=== PATIENT | male | born 1960 | race Caucasian/White ===

== ENCOUNTER 2018-12-25 12:26 | Inpatient (IN) | payer BC ==
[2018-12-25] MEDS ORDERED: fentaNYL* 50 MCG/ML 2 ML VIAL (100 MCG VIAL) IV SLOW PU ONE (13:43)
[2018-12-25] MEDS ORDERED: HYDROmorphone INJ1* 1 MG/ML SYRINGE IV ONE (14:45)
[2018-12-25] MEDS ORDERED: Ondansetron INJ* 2 MG/ML VIAL IV ONE (14:47)
--- NOTE | 2018-12-25 15:22 | ED ---
Adult Trauma - HPI Summary HPI Summary: patient is a 58-year-old male who presents emergency department for left shoulder and right knee injury that occurred just prior to arrival. Patient and his own a drywall company. 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 Patient denies striking his head or loss of consciousness. Patient denies headache, neck pain, chest pain, shortness of breath, abdominal pain. Patient denies numbness, tingling or weakness. Symptoms are moderate in severity. Movement makes symptoms worse. Nothing makes symptoms better. - History of Current Complaint Chief Complaint: EDTraumaMultiple Stated Complaint: FALL/RIGHT SHOULDER LEFT KNEE PER PT Time Seen by Provider: 12/25/18 12:55 Hx Obtained From: Patient Pain Intensity: 10 - Allergy/Home Medications Allergies/Adverse Reactions: Allergies Allergy/AdvReac Type Severity Reaction Status Date / Time morphine Allergy Rash Verified 12/25/18 12:31 Home Medications: Home Medications FLUoxetine CAP* [Prozac CAP*] 10 mg PO DAILY 12/25/18 [History Confirmed ] Pilocarpine HCl 5 mg PO DAILY 12/25/18 [History Confirmed 12/25/18] Tamsulosin CAP* [Flomax CAP*] 0.4 mg PO DAILY WITH MEAL 12/25/18 [History Confirmed 12/25/18] PMH/Surg Hx/FS Hx/Imm Hx Previously Healthy: Yes Infectious Disease History: No Infectious Disease History: Denies: Traveled Outside the [place] in Last 30 Days - Family History Known Family History: Positive: Non-Contributory - Social History Occupation: Employed Full-time Lives: With Family Alcohol Use: Rare Substance Use Type: Reports: Marijuana Smoking Status (MU): Former Smoker Review of Systems Cardiovascular: Negative Negative: Chest Pain Respiratory: Negative Negative: Shortness Of Breath Gastrointestinal: Negative Negative: Abdominal Pain Positive: Other - Left shoulder and right knee pain Negative: Headache, Weakness, Paresthesia, Numbness, Syncope All Other Systems Reviewed And Are Negative: Yes Physical Exam Triage Information Reviewed: Yes Vital Signs On Initial Exam: Initial Vitals Temp Pulse Resp BP Pulse Ox 97.9 F 78 20 141/91 94 12/25/18 12:27 12/25/18 12:27 12/25/18 12:27 12/25/18 12:27 12/25/18 12:27 Vital Signs Reviewed: Yes Appearance: Positive: Pain Distress - Pt. lying in bed, appears in pain but nontoxic. present. Skin: Positive: Warm, Dry Head/Face: Positive: Normal Head/Face Inspection Eyes: Positive: Normal, EOMI Neck: Positive: Supple, Nontender - No midline tenderness Respiratory/Lung Sounds: Positive: Clear to Auscultation, Breath Sounds Present Cardiovascular: Positive: Normal, RRR Abdomen Description: Positive: Nontender, Soft. Negative: CVA Tenderness (R), CVA Tenderness (L) Musculoskeletal: Positive: Other - No midline vertebral tenderness. Deformity noted to left shoulder. Good radial pulse. No breaks in skin. Pain and deformity to right knee. No breaks in the skin. Good pedal pulse. No pelvic pain. No chest wall pain. Neurological: Positive: Normal, Alert, Oriented to Person Place, Time, CN Intact II-III Psychiatric: Positive: Affect/Mood Appropriate - Glidden Coma Scale Best Eye Response: 4 - Spontaneous Best Motor Response: 6 - Obeys Commands Best Verbal Response: 5 - Oriented Coma Scale Total: 15 Diagnostics - Vital Signs Vital Signs Temp Pulse Resp BP Pulse Ox 12/25/18 14:56 20 12/25/18 14:49 99 F 68 22 151/88 97 12/25/18 13:56 20 12/25/18 12:27 97.9 F 78 20 141/91 94 - Laboratory Lab Statement: Any lab studies that have been ordered have been reviewed, and results considered in the medical decision making process. Adult Trauma Course/Dx - Course Course Of Treatment: Patient presenting with right knee and left shoulder injury after falling roughly 3 feet. He has no signs of head trauma, chest or abdominal trauma. Vital signs are stable. Patient was cut from his closed and skin was fully evaluated. Patient was given IV fentanyl initially. X-ray of left shoulder shows before meals separation without fracture. Comminuted tibial plateau fracture seemed to right knee. Chest and pelvic x-rays negative for acute findings x-ray readings per radiology. I spoke with on-call orthopedics, Dr. Osborn, who would like a CT scan of right knee to further evaluate fracture. Patient was placed in a knee immobilizer and left shoulder sling. Patient was initially given a dose of Dilaudid which improved pain. CT knee per radiology: IMPRESSION: Comminuted fracture with depression of the major fracture fragment in the. lateral tibial plateau with depression of the major fracture fragment approximately 8 mm. The comminuted fracture line extends inferiorly to the lateral metaphysis of the tibia,. anteriorly to the tibial tuberosity and extends medially to the posterior medial tibial. plateau as well as fracture line extending just medial to the tibial spine. Hemarthrosis. is noted. Pt. was examined by Dr. Osborn in ED and he will admit him to his service and plans for ORIF on . Pt. has remained stable in the ED. - Diagnoses Differential Diagnosis/HQI/PQRI: Positive: Contusion(s), Fracture, Dislocation, Sprain, Strain Provider Diagnoses: Acromioclavicular joint separation, Tibial plateau fracture Discharge - Sign-Out/Discharge Documenting (check all that apply): Patient Departure Patient Received Moderate/Deep Sedation with Procedure: No - Discharge Plan Condition: Stable Disposition: ADMITTED TO [facility] Referrals: Fran SIDDIQI,Kallie [Primary Care Provider] - - Billing Disposition and Condition Condition: STABLE Disposition: Admitted to [facility]
[2018-12-25] MEDS ORDERED: Acetaminophen TAB* 325 MG PO PRN (17:03)
[2018-12-25] MEDS ORDERED: diPHENhydraMINE IV* 50 MG/ML 1 ml VIAL (BENADRYL) IV PRN (17:03)
[2018-12-25] MEDS ORDERED: Ondansetron INJ* 2 MG/ML VIAL IV PRN (17:03)
[2018-12-25] MEDS ORDERED: oxyCODONE/Acetamin 5/325 MG* TAB PO PRN ×2 (17:03)
--- NOTE | 2018-12-25 17:34 | HP ---
H&P (Free Text) History and Physical: Orthopedic Surgery Consultation H&P Date: 12/25/2018 Requesting Service: ER Chief Complaint: Right knee and left shoulder pain. History: 58M who works in [employer] who was on stilts working when the stilt broke and he fell about 4 feet injuring his right knee and left shoulder. He denies pain anywhere else. Denies head strike or LOC. The worst pain is located at the right knee and is constant, moderate, sharp. Pain worse with knee ROM and lessened when rested. There is associated swelling and ecchymoses. Review of Systems: Negative for fever, recent visual changes, difficulty swallowing, chest pain, abdominal pain, hematuria, easy bruising, diffuse weakness or lack of coordination, and diffuse rash. Positive for recent sinus infection. PMH: BPH, anxiety PSH: Left ankle and right foot fractures fixed by Dr Molina. C-spine fracture surgery. Medications: Flomax and Prozac Allergies: Morphine extended release causes rash SH: Works in [employer]. No tobacco use. Rare alcohol use. +marijuana use. FH: Non-contributory Physical Examination: Constitutional: Temp Pulse Resp BP Pulse Ox 99 F 69 16 140/76 95 12/25/18 17:17 12/25/18 17:17 12/25/18 17:17 12/25/18 17:17 12/25/18 17:17 General appearance is healthy and non-septic in no acute distress. Cardiovascular: Pulse examination demonstrates positive pedal pulses with brisk capillary refill. There are no varicosities. Heart with a regular rate and rhythm. Lungs sounds clear to auscultation bilaterally. Abdomen: Soft and nontender Lymphatic: No lymphadenopathy appreciated. Skin: Bilateral upper and lower extremity examination demonstrates no ulcerative lesions. Psychiatric / Neurological: Appropriate affect. Alert and oriented to person, place and time. There is no significant abnormality in coordination appreciated. Normoreflexive deep tendon reflex of the affected extremity. Musculoskeletal: Right upper extremity and left lower extremity show full range of motion with no evidence of instability and no tenderness with palpation and 5/5 strength. There is no gross deformity. The skin is intact to the left upper extremity. He is tender to palpation at the acromioclavicular joint. Painless glenohumeral range of motion. Sensation is intact to light touch throughout the left upper extremity. Positive radial pulse in the hand is warm and well-perfused. Good motor function in the hand. The skin is intact to the right lower extremity. There is swelling at the knee with some mild bruising. He is tender to palpation at the medial and lateral tibial plateau. He has strong palpable dorsalis pedis and posterior tibial pulses distally. Sensation is intact to light touch. Painless ankle and toe range of motion and no pain with passive stretch. Imaging: X-rays and CT scan of the right knee were obtained, and independently interpreted and show a displaced bicondylar tibial plateau fracture. X-rays of left shoulder show an acromioclavicular joint separation. Impression and Plan: Closed right displaced bicondylar tibial plateau fracture. Left shoulder acromioclavicular joint separation. For the tibial plateau fracture, we discussed the diagnosis and treatment options. My recommendation is open reduction and internal fixation. We discussed the risks/benefits and pros/cons of both nonoperative and operative treatment options at length. He has elected to move forward with ORIF. We'll have him admitted to the hospital. He will remain in a knee immobilizer, nonweightbearing to the right lower extremity. Right lower extremity elevation. Subcutaneous heparin for DVT prophylaxis and a compression SCD on the left leg. We'll obtain preoperative labs in the morning. For the left shoulder acromioclavicular joint separation, he will continue to use a sling. We'll plan on treating this nonoperatively. Catrachito Soria MD
[2018-12-25] MEDS: oxyCODONE TAB* 5 MG TAB PO PRN ×2 (18:13→20:09)
[2018-12-25] MEDS: Lactated Ringers 1000 ML Bag* 1,000 ML IV SCH (20:01)
[2018-12-25] MEDS ORDERED: oxyCODONE TAB* 5 MG TAB PO PRN (20:39)
[2018-12-25] MEDS ORDERED: oxyCODONE TAB* 5 MG TAB PO ONE (20:40)
[2018-12-25] MEDS ORDERED: SULFAMETHOXAZOLE PO SCH (21:00)
[2018-12-25] MEDS ORDERED: TRIMETHOPRIM PO SCH (21:00)
[2018-12-25] MEDS ORDERED: HYDROmorphone INJ1* 1 MG/ML SYRINGE ONE (21:29)
[2018-12-25] MEDS ORDERED: HYDROcodone/ACETAMIN 5-325 MG* 1 TAB ONE (21:29)
[2018-12-25] MEDS: Heparin VIAL(*) 5000 UNITS/ML VIAL (FIVE THOUSAND) SUBCUT SCH (21:53)
[2018-12-25] MEDS: TRIMETHOPRIM PO SCH ×2 (22:20)
[2018-12-25] MEDS: SULFAMETHOXAZOLE PO SCH ×2 (22:20)
[2018-12-25] MEDS: PILOCARPINE 5 MG PO SCH (22:45)
[2018-12-26] MEDS: HYDROmorphone INJ1* 1 MG/ML SYRINGE IV PRN ×4 (00:50→19:56)
[2018-12-26] MEDS: Lactated Ringers 1000 ML Bag* 1,000 ML IV SCH ×2 (05:58→16:14)
[2018-12-26] MEDS: HYDROcodone/ACETAMIN 5-325 MG* 1 TAB PO PRN ×5 (06:08→23:16)
[2018-12-26] MEDS: Heparin VIAL(*) 5000 UNITS/ML VIAL (FIVE THOUSAND) SUBCUT SCH ×3 (06:13→23:14)
[2018-12-26 06:37] LABS: ABS Basophils 0 10^3/ul (0-0.2); ABS Eosinophils 0.3 10^3/ul (0-0.6); ABS Lymphocytes 2.3 10^3/ul (1.0-4.8); ABS Monocytes 0.8 10^3/ul (0-0.8); ABS Neutrophils 5.7 10^3/ul (1.5-7.7); ABS Nucleated RBC 0 10^3/ul; Eosinophil % 3.7 %; Hematocrit 41 % (36-46); Hemoglobin 13.9 g/dL (14.0-18.0); Lymphocyte % 24.8 %; Mean Corpuscular HGB Conc 34 g/dL (31-36); Mean Corpuscular Hemoglobin 31 pg (27-31); Mean Corpuscular Volume 92 fL (80-94); Mean Platelet Volume 7.5 fL (7.4-10.4); Nucleated Red Blood Cells % 0; Platelet Count 185 10^3/uL (150-450); Red Blood Count 4.48 10^6 /uL (4.18-5.48); Red Cell Distribution Width 13 % (10.5-15); White Blood Count 9.3 10^3/uL (3.5-10.8)
[2018-12-26 06:48] LABS: INR 0.98 (0.77-1.02)
[2018-12-26 06:56] LABS: Albumin 4.1 g/dL (3.2-5.2); Calcium 8.6 mg/dL (8.6-10.3); Potassium 4.2 mmol/L (3.5-5.0); Total Bilirubin 0.6 mg/dL (0.2-1.0)
[2018-12-26 07:02] LABS: Albumin/Globulin Ratio 1.6 (1-3); BUN/Creatinine Ratio 20.7 (8-20); EGFR African American 109.4 (>60); EGFR Non-African American 90.4 (>60); Globulin 2.5 g/dL (2-4); Total Protein 6.6 g/dL (6.4-8.9)
[2018-12-26] MEDS ORDERED: Tamsulosin CAP* 0.4 MG PO SCH (08:30)
[2018-12-26] MEDS: TRIMETHOPRIM PO SCH ×2 (08:48→19:57)
[2018-12-26] MEDS: SULFAMETHOXAZOLE PO SCH ×2 (08:48→19:57)
[2018-12-26] MEDS: FLUoxetine CAP* 10 MG PO SCH (08:48)
[2018-12-26] MEDS: PILOCARPINE 5 MG PO SCH ×3 (08:48→19:57)
--- NOTE | 2018-12-26 11:11 | PN ---
Progress Note - Progress Note Date of Service: 12/26/18 SOAP: Subjective: []Pt seen at bedside. He reports RLE pain. Denies CP, SOB, dizziness or nausea. LUE AC separation not painful at this time. Objective: []CGeneral: Well appearing, NAD RLE: Immobilizer in place. Flexion and extension of ankle and MTPs intact. Calf supple and nontender. DP2+, sensation intact to light touch distally LLE calf supple and nontender LUE: Skin envelope intact. No obvious buzz deformity. Radial pulse 2+ Assessment: []Closed right displaced bicondylar tibial plateau fracture. Left shoulder acromioclavicular joint separation. Plan: [] UE: WBA, sling for RUE RLE:NWB, Immobilizer NPO and hold heparin at midnight for OR tomorrow for ORIF R tibial plateau fracture with Dr Soria. Patient aware and agreeable to procedure. Vital Signs Temp 97.2 F 12/26/18 07:15 Pulse 83 12/26/18 07:15 Resp 18 12/26/18 10:40 BP 155/78 12/26/18 07:15 Pulse Ox 98 12/26/18 07:15 Intake & Output 12/25/18 12/26/18 12/26/18 18:59 06:59 18:59 Intake Total 2630 320 Output Total 410 200 Balance 2220 120 Weight 275 lb 275 lb Intake: IV Fluids 980 LR 980 Oral 1650 320 Output: Urine 410 200 Other: Estimated Void Medium # Voids 3 Laboratory Last Values WBC 9.3 10^3/uL (3.5-10.8) 12/26/18 06:14 RBC 4.48 10^6 /uL (4.18-5.48) 12/26/18 06:14 Hgb 13.9 g/dL (14.0-18.0) L 12/26/18 06:14 Hct 41 % (36-46) 12/26/18 06:14 MCV 92 fL (80-94) 12/26/18 06:14 MCH 31 pg (27-31) 12/26/18 06:14 MCHC 34 g/dL (31-36) 12/26/18 06:14 RDW 13 % (10.5-15) 12/26/18 06:14 Plt Count 185 10^3/uL (150-450) 12/26/18 06:14 MPV 7.5 fL (7.4-10.4) 12/26/18 06:14 Neut % (Auto) 62.0 % 12/26/18 06:14 Lymph % (Auto) 24.8 % 12/26/18 06:14 [place] % (Auto) 9.1 % 12/26/18 06:14 Eos % (Auto) 3.7 % 12/26/18 06:14 Baso % (Auto) 0.4 % 12/26/18 06:14 Absolute Neuts (auto) 5.7 10^3/ul (1.5-7.7) 12/26/18 06:14 Absolute Lymphs (auto) 2.3 10^3/ul (1.0-4.8) 12/26/18 06:14 Absolute Monos (auto) 0.8 10^3/ul (0-0.8) 12/26/18 06:14 Absolute Eos (auto) 0.3 10^3/ul (0-0.6) 12/26/18 06:14 Absolute Basos (auto) 0 10^3/ul (0-0.2) 12/26/18 06:14 Absolute Nucleated RBC 0 10^3/ul 12/26/18 06:14 Nucleated RBC % 0 12/26/18 06:14 INR (Anticoag Therapy) 0.98 (0.77-1.02) 12/26/18 06:13 Sodium 133 mmol/L (135-145) L 12/26/18 06:13 Potassium 4.2 mmol/L (3.5-5.0) 12/26/18 06:13 Chloride 101 mmol/L (101-111) 12/26/18 06:13 Carbon Dioxide 25 mmol/L (22-32) 12/26/18 06:13 Anion Gap 7 mmol/L (2-11) 12/26/18 06:13 BUN 18 mg/dL (6-24) 12/26/18 06:13 Creatinine 0.87 mg/dL (0.67-1.17) 12/26/18 06:13 Est GFR ( Amer) 109.4 (>60) 12/26/18 06:13 Est GFR (Non-Af Amer) 90.4 (>60) 12/26/18 06:13 BUN/Creatinine Ratio 20.7 (8-20) H 12/26/18 06:13 Glucose 108 mg/dL (70-100) H 12/26/18 06:13 Calcium 8.6 mg/dL (8.6-10.3) 12/26/18 06:13 Total Bilirubin 0.60 mg/dL (0.2-1.0) 12/26/18 06:13 AST 35 U/L (13-39) 12/26/18 06:13 ALT 30 U/L (7-52) 12/26/18 06:13 Alkaline Phosphatase 48 U/L (34-104) 12/26/18 06:13 Total Protein 6.6 g/dL (6.4-8.9) 12/26/18 06:13 Albumin 4.1 g/dL (3.2-5.2) 12/26/18 06:13 Globulin 2.5 g/dL (2-4) 12/26/18 06:13 Albumin/Globulin Ratio 1.6 (1-3) 12/26/18 06:13 <Rita Giraldo - Last Filed: 12/26/18 11:12> - Progress Note SOAP: I saw and examined Carlos. Pain much better today in RLE. Minimal shoulder pain On exam skin intact and soft about right knee. NVI distally. No e/o compartment syndrome. Again reviewed injuried and plan for OR tomorrow. All questions answered. NPO at midnight. Catrachito Soria MD <Catrachito Soria - Last Filed: 12/26/18 18:46>
[2018-12-26] MEDS: Tamsulosin CAP* 0.4 MG PO SCH (18:16)
[2018-12-26] MEDS: traZODone TAB* 50 MG TAB PO PRN (19:59)
[2018-12-27] MEDS: Lactated Ringers 1000 ML Bag* 1,000 ML IV SCH ×2 (02:22→18:47)
[2018-12-27] MEDS: HYDROcodone/ACETAMIN 5-325 MG* 1 TAB PO PRN ×2 (03:53→19:54)
[2018-12-27] MEDS: FLUoxetine CAP* 10 MG PO SCH (07:52)
[2018-12-27] MEDS: PILOCARPINE 5 MG PO SCH ×3 (07:52→21:34)
[2018-12-27] MEDS: TRIMETHOPRIM PO SCH ×2 (07:53→21:34)
[2018-12-27] MEDS: SULFAMETHOXAZOLE PO SCH ×2 (07:53→21:34)
[2018-12-27] MEDS ORDERED: Ondansetron INJ* 2 MG/ML VIAL ONE (10:21)
[2018-12-27] MEDS ORDERED: Midazolam* 1 MG/ML 5 ML VIAL (5 MG) ONE (10:21)
[2018-12-27] MEDS ORDERED: fentaNYL* 50 MCG/ML 5 ML VIAL (250 MCG VIAL) ONE (10:21)
[2018-12-27] MEDS ORDERED: Propofol* 10 MG/ML 20 ML BTL ONE (10:21)
[2018-12-27] MEDS ORDERED: Dexamethasone IV* 4 MG/ML 1 ML (4 MG) ONE (10:21)
[2018-12-27] MEDS: HYDROmorphone INJ1* 1 MG/ML SYRINGE IV PRN ×2 (10:27→21:10)
[2018-12-27] MEDS ORDERED: Bupivacaine 0.5%* 50 ML VIAL ONE (11:04)
[2018-12-27] MEDS ORDERED: ceFAZolin 2 GM in NS PREMIX(*) 2 GM/100 ML BAG IVPB ONE (11:22)
[2018-12-27] MEDS ORDERED: ceFAZolin 1 GM in Dextrose (*) 1 GM/50 ML BAG IVPB ONE (11:22)
[2018-12-27] MEDS ORDERED: Cisatracurium* 2 MG/ML MDV 5 ML ONE (12:00)
[2018-12-27] MEDS ORDERED: Ketorolac INJ* 30 MG/ML 1 ML VIAL ONE (12:43)
[2018-12-27] MEDS ORDERED: HYDROmorphone INJ1* 1 MG/ML SYRINGE ONE (12:46)
[2018-12-27] MEDS ORDERED: Glycopyrrolate IV* 0.2 MG/ML 1 ML VIAL ONE (12:47)
[2018-12-27] MEDS ORDERED: Neostigmine Methylsulfate* 1 MG/ML 10 ML VIAL (1 mg/ml) ONE (12:47)
[2018-12-27] MEDS ORDERED: HYDROmorphone INJ1* 1 MG/ML SYRINGE IV PRN (12:53)
[2018-12-27] MEDS ORDERED: fentaNYL* 50 MCG/ML 2 ML VIAL (100 MCG VIAL) IV PRN (12:53)
[2018-12-27] MEDS ORDERED: Ondansetron INJ* 2 MG/ML VIAL IV PRN (12:53)
[2018-12-27] MEDS ORDERED: Naloxone* 0.4 MG/ML 1 ML VIAL IV PRN (12:53)
[2018-12-27] MEDS ORDERED: fentaNYL* 50 MCG/ML 2 ML VIAL (100 MCG VIAL) ONE ×2 (14:06→15:24)
[2018-12-27] MEDS ORDERED: HYDROcodone/ACETAMIN 5-325 MG* 1 TAB PO PRN (14:21)
[2018-12-27] MEDS ORDERED: hydrALAZINE IV* 20 MG/ML VIAL ONE (15:22)
[2018-12-27] MEDS: Tamsulosin CAP* 0.4 MG PO SCH (18:50)
--- NOTE | 2018-12-27 18:57 | OP ---
Operative Report - Blank - Operative Report Date of Operation: 12/27/18 Note: PATIENT: Carlos Alvares DATE OF : 1960 DATE OF SURGERY: 12/27/2018 SURGEON: Catrachito Soria MD GASOLINE DRAGLINE OPERATOR: JAY JAY Sabillon, whos assistance was necessary for positioning, retraction, help with instrumentation, and closure. ANESTHESIOLOGIST: Dr. Manzanares PREOPERATIVE DIAGNOSIS: Right bicondylar tibial plateau fracture and left acromioclavicular joint separation. POSTOPERATIVE DIAGNOSIS: Right bicondylar tibial plateau fracture and left acromioclavicular joint separation. OPERATION: 1. Right bicondylar tibial plateau fracture open reduction and internal fixation. 2. Closed treatment of left acromioclavicular joint separation. ANESTHESIA: General IMPLANTS: Synthes proximal tibia plates TOURNIQUET TIME: Less than 2 hours with a well-padded thigh tourniquet SPECIMENS: none ESTIMATED BLOOD LOSS: minimal COMPLICATIONS: none STATUS: Stable from the operating room to the recovery room and then to the hospital floor. INDICATIONS FOR PROCEDURE: Carlos sustained the above injuries. Both operative and non operative treatment alternatives were reviewed. Further, the nature and risks of surgery were reviewed in careful detail. Our discussions regarding the risks of surgery included, but were not limited to, infection, wound problems, nerve injury, neuroma, RSD, persistent symptoms, blood clot, failure of the surgery, posttraumatic arthritis, malunion, nonunion, compartment syndrome, and even the remote chance of catastrophic complication, including loss of limb or . DESCRIPTION OF PROCEDURE: The patient was seen in the preoperative holding unit and informed written consent was obtained. The appropriate extremity was marked. The patient was then brought to the operating room and carefully positioned on the operating room table. Anesthesia was induced. All bony prominences were padded with great care. A well-padded thigh tourniquet was placed. A chlorhexidine based pre- scrub was performed followed by a chloraprep prep and drape in standard sterile fashion. A surgical safety pause was then conducted in which we confirmed the appropriate patient, extremity, planned procedure, availability of equipment, indication and administration of prophylactic antibiotics, and DVT prophylaxis in the form of a compression boot on the non-surgical extremity. We began with an Esmarch exsanguination of the limb and inflated the tourniquet. I started with a longitudinal incision medially along the posterior crest of the proximal tibia. Blunt dissection was used through the subcutaneous tissue to get down to the layer of the sartorial fascia. I was careful to protect the saphenous nerve and vein throughout the course of the procedure. The pes anserinus was exposed. The pes anserinus was then tagged, incised, and reflected posteriorly to expose the posteromedial edge of the proximal tibia. The MCL was visualized on the bone and was left intact. The medial head of the gastrocnemius was then gently retracted laterally. This exposed the posteromedial tibial plateau and fracture. A Synthes contoured, one third semitubular plate was then placed on the proximal tibia in a buttress plate fashion. Fluoroscopy was again used to confirm placement of the plate. I then placed the 3.5 mm screws into the plate and the provisional fixation was removed. Fluoroscopy confirmed maintained reduction of the fracture and satisfactory hardware placement. The pes anserinus was then repaired. The wound was copiously irrigated and closed in a layered fashion using #1 Vicryl suture, 3-0 Monocryl suture, and skin rosmery. An S-shaped longitudinal incision was made laterally at the knee and proximal tibia. I dissected down to the fascial layer. The tibialis anterior was then reflected posteriorly to expose the proximal lateral tibia. An arthrotomy was then made at the lateral joint line distal to the lateral meniscus. This provided visualization of the lateral plateau as well as the lateral meniscus. No meniscal tear was appreciated. I exposed the main fracture plane, and windowed open the fracture. There was severe depression of the majority of the lateral plateau with comminution. Bone tamps were then used to elevate the articular surface of the lateral tibial plateau. This was provisionally held with rafting K wires. Fluoroscopy was used to confirm the reduction. The lateral plateau split fracture was then reduced and held provisionally with a large reduction clamp and K wires. A Synthes anatomic proximal tibia plate was then placed along the lateral proximal tibia. Fluoroscopy was used to confirm placement of the plate. I then placed the 3.5 mm screws into the plate and the provisional fixation was removed. Synthes calcium phosphate cement (Norian) was then injected to fill the void and support the now-reduced depressed lateral plateau. Fluoroscopy confirmed maintained reduction of the fracture and satisfactory hardware placement. The meniscocapsular ligaments were then repaired to close the arthrotomy. Final fluoroscopic images were then obtained. I elected to treat the acromioclavicular joint separation on the left side in a closed manner. The wound was then copiously irrigated and closed in a layered fashion utilizing #1 Vicryl for the deep layer, 3-0 Monocryl for the dermal layer, and skin rosmery for the skin. A sterile dressing was then applied, as well as a Erie brace with the knee locked in extension. The patient was then awakened from anesthesia and transferred to the recovery room in stable condition. There were no complications. All needle and sponge counts were correct at the end of the case. ATTESTATION: I attest I was present and scrubbed and performed the critical portions of the procedure myself. POSTOPERATIVE PLAN: The plan is to remain touch down weight-bearing for an anticipated duration of 2 months. Range of motion as tolerated in the knee with the Erie brace on. The plan is for chemical DVT prophylaxis with Lovenox for 1 month postoperatively. Follow-up in 2 weeks for likely staple removal.
[2018-12-27] MEDS: ceFAZolin 1 GM in Dextrose (*) 1 GM/50 ML BAG IVPB SCH (19:55)
[2018-12-27] MEDS: traZODone TAB* 50 MG TAB PO PRN (22:25)
[2018-12-28] MEDS: HYDROmorphone INJ1* 1 MG/ML SYRINGE IV PRN ×3 (00:01→07:10)
[2018-12-28] MEDS: HYDROcodone/ACETAMIN 5-325 MG* 1 TAB PO PRN ×3 (00:01→08:14)
[2018-12-28] MEDS: ceFAZolin 1 GM in Dextrose (*) 1 GM/50 ML BAG IVPB SCH ×2 (04:14→12:22)
[2018-12-28] MEDS: Lactated Ringers 1000 ML Bag* 1,000 ML IV SCH (04:17)
[2018-12-28 06:37] LABS: Hematocrit 38 % (36-46); Hemoglobin 12.6 g/dL (14.0-18.0); Mean Platelet Volume 7.8 fL (7.4-10.4); Platelet Count 180 10^3/uL (150-450)
[2018-12-28 07:08] LABS: BUN/Creatinine Ratio 13.6 (8-20); Calcium 8.6 mg/dL (8.6-10.3); EGFR Non-African American 89.3 (>60); Potassium 4.2 mmol/L (3.5-5.0)
[2018-12-28] MEDS: PILOCARPINE 5 MG PO SCH ×2 (08:14→14:32)
[2018-12-28] MEDS: TRIMETHOPRIM PO SCH (08:14)
[2018-12-28] MEDS: SULFAMETHOXAZOLE PO SCH (08:14)
[2018-12-28] MEDS: FLUoxetine CAP* 10 MG PO SCH (08:14)
[2018-12-28] MEDS ORDERED: Enoxaparin(*) 40 MG/0.4 ML SYR SUBCUT SCH (11:00)
[2018-12-28 12:25] VITALS: BP 152/72
--- NOTE | 2018-12-28 12:29 | PN ---
Progress Note - Progress Note Date of Service: 12/28/18 SOAP: Subjective: []Patient seen OOB in chair. His pain is well managed. He did well with PT maintaining a NWB status on the right leg. He feels he is ready to go home this afternoon. Denies SOB, CP, palpitations or dizziness. Objective: [] Vital Signs Temp 98.8 F 12/28/18 11:41 Pulse 80 12/28/18 11:41 Resp 16 12/28/18 11:41 BP 152/72 12/28/18 11:41 Pulse Ox 97 12/28/18 11:41 Intake & Output 12/27/18 12/28/18 12/28/18 18:59 06:59 18:59 Intake Total 3546 2178 Output Total 565 2425 880 Balance 2981 -247 -880 Weight 275 lb Intake: IV Fluids 2906 1160 3G ANCEF 100 LR 806 1160 lr 2000 IVPB 58 ABX - CEFAZOLIN 58 Oral 640 960 Output: Urine 565 2425 880 Laboratory Results - last 24 hr 12/28/18 12/28/18 05:49 05:49 Hgb 12.6 L Hct 38 Plt Count 180 MPV 7.8 Sodium 132 L Potassium 4.2 Chloride 99 L Carbon Dioxide 26 Anion Gap 7 BUN 12 Creatinine 0.88 Est GFR ( Amer) 108.0 Est GFR (Non-Af Amer) 89.3 BUN/Creatinine Ratio 13.6 Glucose 112 H Calcium 8.6 Right LE KISHORE dry and intact, hinged knee brace donned, locked in extension +DF left ankle without calf pain sensation intact distally 2+ pedal pulse Assessment: []s/p ORIF right tibial plateau fracture POD #1 Plan: []PT/OT NWB RLE with brace locked in extension, may unlock brace with therapy to work on ROM exercises daily Dressing change with 4x4 and KISHORE wrap in 2 days at home Lovenox 40 mg daily for 1 month post operatively Follow up in office with Dr. Soria in 10-14 days
--- NOTE | 2018-12-28 15:57 | DS ---
DATE OF ADMISSION: 12/25/2018. DATE OF DISCHARGE: 12/28/2018. ATTENDING PHYSICIAN: Dr. Catrachito Soria * (dictated by JAY JAY Gonzales). ADMISSION DIAGNOSES: Displaced bicondylar tibial plateau fracture right knee, left AC joint separation. DISCHARGE DIAGNOSES: Displaced bicondylar tibial plateau fracture right knee, left AC joint separation. SURGERY PERFORMED: Open reduction internal fixation bicondylar tibial plateau fracture right lower extremity, closed treatment left acromioclavicular joint separation. 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 He sustained the aforementioned injuries and was seen and evaluated by Dr. Soria who recommended surgical fixation of his tibial plateau fracture. The patient elected to proceed and was taken to the operating room under his care on the date of 12/27/2018. The patient tolerated the procedure well and left the operating room in stable condition. Postoperatively, he progressed satisfactorily, maintaining a nonweightbearing status on the right lower extremity. His pain was managed with oral pain medications. He had minimal shoulder complaints. It was felt that he was medically and orthopedically stable for discharge to home the afternoon of 12/28. CONDITION ON DISCHARGE: Temperature 98.8, pulse 80, respiratory rate 16, O2 saturation 97 percent on room air, blood pressure 152/72. The right lower extremity dressings remain dry and intact. His calf is nontender and soft. Passive stretch of the calf does not elicit calf pain. He has full sensation and circulation in the right lower extremity. He is moving his left shoulder fairly well with some discomfort at the superior aspect of the shoulder at the AC joint. His neurovascular status is intact in the upper extremity. PLAN: Patient to be discharged home. He will continue with nonweightbearing on the right lower extremity with the hinge knee brace locked in extension. The knee brace may be unlocked for range of motion exercises only with therapy. Otherwise, it will be locked with ambulatory. He may shower in two days, reapply 4 x 4's and KISHORE wrap to the knee. He will continue with Lovenox 40 mg subcu daily for one month postoperatively for DVT prophylaxis. He may wear a sling on the left upper extremity as needed for comfort and support. We recommend a follow-up with Dr. Soria in the office in roughly 10 to 14 days. If there are any problems or concerns prior to the follow-up, the office will be contacted. All questions were answered. JAY JAY MORALES [id number]/[facility] #: [id number] KARLA
== END 2018-12-28 15:44 | disposition home or self-care (01) | DRG 313 ==
LOC: ED 12:26 → SSU 17:03
PROVIDERS: ADMIT Orthopaedic Surgery; ATTEND Orthopaedic Surgery
PROC: 0RQH0ZZ Repair Left Acromioclavicular Joint, Open Approach (ICD-10-PCS; 2018-12-27)
PROC: 0QSG04Z Reposition Right Tibia with Internal Fixation Device, Open Approach (ICD-10-PCS; principal; 2018-12-27 13:30)
DX: S82.141A Displaced bicondylar fracture of right tibia, initial encounter for closed fracture (principal); N40.0 Benign prostatic hyperplasia without lower urinary tract symptoms; S43.102A Unspecified dislocation of left acromioclavicular joint, initial encounter; F41.9 Anxiety disorder, unspecified; R40.2412 Glasgow coma scale score 13-15, at arrival to emergency department; W01.0XXA Fall on same level from slipping, tripping and stumbling without subsequent striking against object, initial encounter; Z88.5 Allergy status to narcotic agent; Z87.891 Personal history of nicotine dependence; Y92.89 Other specified places as the place of occurrence of the external cause
CPT/HCPCS: 36415; 71045; 72170; 76000; 80048; 80053; 84300; 85014; 85018; 85025; 85049; 85610; 86850; 86900; 86901; 99284; A9270-GY; C1713; C1776; J0360; J0690; J1100; J1170; J1644; J1650; J1885; J2250; J2405; J2704; J2710; J3010